=== PATIENT | female | born 2000 | race Caucasian/White ===

== ENCOUNTER 2020-05-05 11:06 | Emergency (ER) | payer OTHER, MEDICAID ==
[~2020-05-05] VITALS: Ht 175.3 cm; Wt 83.0 kg
[2020-05-05] MEDS ORDERED: PROZAC20 M1 PO (11:19)
[2020-05-05] MEDS ORDERED: XYOSTED50 MG/0.5 SUBQ (11:19)
[2020-05-05 11:58] LABS: ABSOLUTE EOSINOPHILS 0.1 thou/uL (0.0-0.7); ABSOLUTE LYMPHOCYTES 0.9 thou/uL (0.8-5.3); ABSOLUTE NEUTROPHILS 8.9 thou/uL (1.6-8.1); BASOPHILS 0.2 %; EOSINOPHILS 0.5 %; HEMATOCRIT 35.8 % (37.0-47.0); HEMOGLOBIN 11.8 gm/dL (12.0-15.0); LYMPHOCYTES 8.2 %; MCH 26.3 pg (26.0-34.0); MCV 79.6 fL (80.0-100.0); MONOCYTES 9.3 %; MPV 7.2 fl. (7.2-11.1); NUCLEATED RBCS 0 /100WBC; PLATELET COUNT* 301 thou/uL (150-400); POLYS 81.8 %; RDW-CV 15.3 % (10.5-14.5); WBC 10.8 thou/uL (4.0-11.0)
[2020-05-05 12:02] LABS: CALCIUM 9.1 mg/dL (8.5-10.1); CREATININE 0.9 mg/dL (0.6-1.3); POTASSIUM 4.1 mmol/L (3.5-5.1)
[2020-05-05 12:06] LABS: ALBUMIN 3.4 g/dL (3.4-5.0); TOTAL BILIRUBIN 0.7 mg/dL (<0.1-1.0); TOTAL PROTEIN 7.4 g/dL (6.4-8.2)
[2020-05-05 12:12] LABS: URINE BILIRUBIN NEGATIVE (Negative); URINE BLOOD 3+ (Negative); URINE CLARITY CLEAR; URINE COLOR YELLOW; URINE GLUCOSE-RANDOM NEGATIVE (Negative); URINE KETONES NEGATIVE (Negative); URINE LEUKOCYTES-REFLEX 2+ (Negative); URINE NITRITE-REFLEX NEGATIVE (Negative); URINE PROTEIN TRACE (Negative); URINE UROBILINOGEN 0.2 E.U./dl (0.2-1.0)
[2020-05-05 12:17] LABS: CASTS None Seen /LPF (None Seen); CRYSTALS None Seen /LPF (None Seen); MUCUS 4-6 Moderate strn/LPF (None Seen); SQUAMOUS 0-3 Few /LPF (0-3)
[2020-05-05] MEDS ORDERED: KEFLEX500 M1 PO (12:48)
[2020-05-05] MEDS ORDERED: ATIVAN0.5 M1 PO (12:48)
[2020-05-05] MEDS ORDERED: ZOFRAN ODT4 MG PO (12:49)
[2020-05-05 12:56] VITALS: BP 142/83
== END 2020-05-05 12:56 | disposition home or self-care (01) ==
LOC: M.ERS 11:06
PROVIDERS: Nurse Practitioner Family
DX: F41.9 Anxiety disorder, unspecified (principal); R82.71 Bacteriuria; R11.0 Nausea; F32.9 Major depressive disorder, single episode, unspecified